=== PATIENT | male | born 1965 | race African-American/Black ===

== ENCOUNTER 2023-07-13 16:40 | Emergency (ER) | payer OTHER, SELFPAY ==
--- NOTE | ~2023-07-13 | XR_ITS ---
EXAM: XR foot LT min 3V DATE: 07/13/2023 17:49 HISTORY: DEEP PUNCTURE WOUND FROM APROXIMALLY 1.5 INCHES . COMPARISON: None available. FINDINGS: Normal mineralization. No fracture or dislocation. No lytic or blastic lesion. Mild scatte red degenerative changes. No erosion or periosteal change. Soft tissues within normal limits. IMPRESSION: No acute osseous finding in the left foot. No radiopaque foreign body. Reviewed, dictated and finalized at location K. IMPRESSION: No acute osseous finding in the left foot. No radiopaque foreign janis dy.
[2023-07-13 16:53] VITALS: BP 143/75; PULSE 76; RESP 18; TEMP 37; O2SAT 97
--- NOTE | 2023-07-13 17:39 | ED.LOWEXIN ---
HPI - Extremity Injury (Lower) General Chief Complaint: Extremity Injury, Lower Stated Complaint: Left Foot injury Time Seen by Provider: 07/13/23 17:31 Source: patient and RN notes reviewed Mode of arrival: ambulatory Limitations: no limitations History of Present Illness HPI Narrative: Patient presents today complaining of puncture wound to the heel of the left foot. States around noon today he stepped on a screw that penetrated approximately 1-1.5 inches into his bare foot. Last tetanus shot was 2016. No treatment prior to arrival. Patient states he is prediabetic. Related Data Home Medications Medication Instructions Recorded Confirmed blood sugar diagnostic (Contour 07/13/23 07/13/23 Next Test Strips) blood-glucose meter (Contour Next 07/13/23 07/13/23 One Meter) empagliflozin 10 mg tablet 10 mg PO DAILY 07/13/23 07/13/23 (Jardiance) evolocumab 140 mg/mL subcutaneous 1 mg subcut DIRECTED 07/13/23 07/13/23 pen injector (Repatha SureClick) lancets (Microlet Lancet) 07/13/23 07/13/23 losartan 100 mg tablet 100 mg PO DAILY 07/13/23 07/13/23 metformin 500 mg tablet 500 mg PO DIRECTED 07/13/23 07/13/23 metoprolol succinate 100 mg 100 mg PO DAILY 07/13/23 07/13/23 tablet,extended release 24 hr spironolactone 25 mg tablet 25 mg PO DAILY 07/13/23 07/13/23 tadalafil 5 mg tablet 5 mg PO DIRECTED 07/13/23 07/13/23 tamsulosin 0.4 mg capsule 0.4 mg PO DIRECTED 07/13/23 07/13/23 valacyclovir 500 mg tablet 500 mg PO DIRECTED 07/13/23 07/13/23 Allergies Allergy/AdvReac Type Severity Reaction Status Date / Time lisinopril AdvReac Cough Verified 07/13/23 17:18 [id number]-[id number] Reductase AdvReac Muscle Pain Verified 07/13/23 17:18 Inhibitor Review of Systems Review of Systems: CONSTITUTIONAL: Denies body aches, fever, chills, or sweats. EYES: Denies visual changes, redness, or discharge. ENT: Denies rhinorrhea, congestion, sore throat, or otalgia. CARDIOVASCULAR: Denies chest pain, palpitations, or edema. RESPIRATORY: Denies cough or dyspnea. GASTROINTESTINAL: Denies abdominal pain, nausea, vomiting, or diarrhea. GENITOURINARY: Denies dysuria or hematuria. SKIN: + puncture wound to left heel MUSCULOSKELETAL: Denies back pain, joint pain, or myalgia. NEUROLOGIC: Denies headache, numbness, tingling, or weakness. PSYCH: Denies depression or anxiety. PMFSH Comments At time of signature, I have reviewed and agree with nursing past medical, surgical, social and family history unless otherwise noted. Please see nursing chart for further information. There is no relevant family history pertinent to the presenting complaint Exam Narrative: GENERAL: Well-appearing, well-nourished, and in no acute distress. HEAD: Normocephalic, atraumatic. EYES: EOMI. No redness or drainage. Conjunctivae normal. ENT: Mucous membranes pink and moist. NECK: Normal AROM. CHEST: No respiratory distress. EXTREMITIES: 3mm puncture wound to the left heel. No active bleeding. No surrounding erythema or ecchymosis. No edema. Distal sensation intact. Capillary refill normal. Pedal pulse normal. Full range of motion of ankle and toes. SKIN: Warm, dry, no rash. Capillary refill normal. Normal skin turgor. NEURO: No focal deficits. Alert and oriented x3. Gait steady. PSYCH: Normal affect. No signs of depression or anxiety. Course Course Level of Care: Express Care Visit Vital Signs Vital signs: Vital Signs Temperature 98.6 F 07/13/23 16:53 Pulse Rate 76 07/13/23 16:53 Respiratory Rate 18 07/13/23 16:53 Blood Pressure 143/75 H 07/13/23 16:53 Pulse Oximetry 97 07/13/23 16:53 Oxygen Delivery Room Air 07/13/23 16:53 Temperature 98.6 F 07/13/23 16:53 Pulse Rate 76 07/13/23 16:53 Respiratory Rate 18 07/13/23 16:53 Blood Pressure 143/75 H 07/13/23 16:53 Pulse Oximetry 97 07/13/23 16:53 Oxygen Delivery Room Air 07/13/23 16:53 Reviewed [facility]
[2023-07-13] MEDS: TETANUS,DIPHTHERIA,AC PERTUSSIS ADULT (0.5 ML) BOOSTRIX IM (17:52)
== END 2023-07-13 18:10 | disposition home or self-care (01) ==
PROVIDERS: Emergency Provider Nurse Practitioner
DX: S91.332A Puncture wound without foreign body, left foot, initial encounter (principal); W26.8XXA Contact with other sharp object(s), not elsewhere classified, initial encounter; Z23 Encounter for immunization; E78.00 Pure hypercholesterolemia, unspecified; I10 Essential (primary) hypertension; N40.0 Benign prostatic hyperplasia without lower urinary tract symptoms; E11.9 Type 2 diabetes mellitus without complications
CPT/HCPCS: 73630; 90471; 90715; 99213; G0463